=== PATIENT | male | born 1990 | race African-American/Black ===

== ENCOUNTER 2019-05-22 17:36 | Emergency (ER) | payer OTHER ==
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
[2019-05-22] MEDS ORDERED: Diphtheria,Pertussis(Acell),Tetanus Vaccine 0.5 ML Syringe IM ONE (17:42)
[2019-05-22] MEDS ORDERED: Bacitracin Oint 1 GM U/D Packet TOP ONE (17:43)
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
== END 2019-05-22 19:54 | disposition home or self-care (01) ==
LOC: MW.ED 17:36
DX: S92.412A Displaced fracture of proximal phalanx of left great toe, initial encounter for closed fracture (principal); S01.412A Laceration without foreign body of left cheek and temporomandibular area, initial encounter; S49.92XA Unspecified injury of left shoulder and upper arm, initial encounter; S09.90XA Unspecified injury of head, initial encounter; Z23 Encounter for immunization; V86.56XA Driver of dirt bike or motor/cross bike injured in nontraffic accident, initial encounter
CPT/HCPCS: 70486; 70486-26; 73030-26-LT; 73030-LT; 73620-26-LT; 73620-LT; 90471; 90715; 99284; 99284-25